=== PATIENT | female | born 1960 | race Caucasian/White ===

== ENCOUNTER 2018-09-01 06:31 | Day surgery (SDC) | payer BC ==
[2018-09-01] MEDS ORDERED: Bupivacaine 0.5% 50 ML MDV ONE (06:36)
[2018-09-01] MEDS ORDERED: Lidocaine 1% with EPINEPHrine 1:100,000 50 ML MDV ONE (06:36)
[2018-09-01] MEDS ORDERED: Sodium Chloride 0.9% 1,000 ML IV SCH (07:00)
[2018-09-01] MEDS ORDERED: Propofol 200 MG/20 ML SDV ONE ×3 (07:19→08:14)
[2018-09-01] MEDS ORDERED: fentaNYL 100 MCG/2 ML SDV ONE (07:19)
[2018-09-01] MEDS ORDERED: Midazolam 1 MG/ML 2 ML SDV ONE ×2 (07:19→07:57)
[2018-09-01] MEDS ORDERED: ceFAZolin 2 GM in Premix Bag 1 BAG IV ONE (07:30)
[2018-09-01] MEDS ORDERED: Bacitracin Oint 1 GM U/D Packet ONE (08:26)
--- NOTE | 2018-09-09 08:57 | OR ---
DATE OF PROCEDURE: 09/01/2018 PROCEDURES: 1. Excision of right breast lesion. 2. 6 mm punch, base of tongue. COMPLICATION: None. [employer]PERATIONS MANAGER: None. PREOPERATIVE DIAGNOSES: 1. Infected breast tissue, recurrent. 2. Concerning lesion at base of tongue in a smoker. POSTOPERATIVE DIAGNOSES: 1. Infected breast tissue, recurrent. 2. Concerning lesion at base of tongue in a smoker. RISKS: Risks, benefits, alternatives, and limitations were explained to the patient including, but not limited to infection, bleeding, false-positives and false-negatives with respect to biopsies, and requirement for operation. The patient understands these risks. She was also explained the fact that we are removing this breast lesion due to her recurrent infections (approximately 5 to 10) over the years, however, not currently infected at this time. PROCEDURE IN DETAIL: The patient was placed in supine position. The area of previous infections was marked by the patient preoperatively. A curvilinear incision would be made after anesthetizing with lidocaine. This was carried down to approximately 3 cm of tissue and approximately a 3 cm in circumference area was removed. All bleeding was controlled with electrocautery. The wound was left open for one minute and inspected for evidence of additional bleeding and none was noted. This was irrigated. The wound was then closed with 3-0 Vicryl and 4-0 Vicryl. Dressings were applied. The lesion at the base of the tongue, slightly to the left of midline, was readily identified. This was anesthetized with lidocaine. A punch biopsy was then performed in standard fashion using 11 blade to take the base. A fast absorbing chromic stitch was then used to close the defect. The patient tolerated the procedure well. Murray Olmedo MD /[id number]
== END 2018-09-01 10:35 | disposition home or self-care (01) ==
LOC: JP.SDS 06:31
PROVIDERS: ATTEND Surgery
DX: C01 Malignant neoplasm of base of tongue (principal); N60.31 Fibrosclerosis of right breast; N61.0 Mastitis without abscess; I10 Essential (primary) hypertension; F17.200 Nicotine dependence, unspecified, uncomplicated; Z88.0 Allergy status to penicillin
CPT/HCPCS: 11104; 19301; 88305; 88342; J0690; J2250; J2704; J3010; J3490; J7030

== ENCOUNTER 2024-06-04 12:10 | Inpatient (IN) | payer BC ==
[2024-06-04] MEDS ORDERED: Sodium Chloride 0.9% 10 ML Syringe FLUSH PRN ×2 (12:58→17:04)
[2024-06-04] MEDS ORDERED: Naloxone 0.4 MG/ML SDV IVPUSH PRN ×3 (12:58→15:29)
[2024-06-04 13:03] LABS: BASOPHILS ABSOLUTE AUTO 0.02 K/uL (0.00-0.10); BASOPHILS PERCENT AUTO 0.5 % (0.1-1.3); EOSINOPHILS ABSOLUTE AUTO 0.01 K/uL (0.00-0.40); EOSINOPHILS PERCENT AUTO 0.3 % (0.0-5.4); HEMATOCRIT 25.2 % (34.3-46.0); HEMOGLOBIN 8.8 g/dL (11.2-15.5); IMMATURE GRAN ABSOLUTE AUTO 0.04 K/uL (0.00-0.23); LYMPHOCYTES ABSOLUTE AUTO 0.47 K/uL (0.8-3.3); LYMPHOCYTES PERCENT AUTO 12.3 % (11.4-47.7); MEAN CORPUSCULAR HEMOGLOBIN 38.6 pg (31.6-35.5); MEAN CORPUSCULAR HGB CONC 34.9 g/dL (31.6-35.5); MEAN CORPUSCULAR VOLUME 110.5 fL (81.4-99.0); MONOCYTES ABSOLUTE AUTO 0.19 K/uL (0.20-0.90); NEUTROPHILS PERCENT AUTO 80.9 % (40.0-78.1); PLATELET COUNT,PLT 163 K/uL (130-375); RED BLOOD CELL COUNT 2.28 M/uL (3.77-5.24); WHITE BLOOD CELL COUNT,WBC 3.8 K/uL (3.2-11.0)
[2024-06-04] MEDS: Ondansetron 4 MG/2 ML SDV IVPUSH ONE (13:04)
[2024-06-04] MEDS: HYDROmorphone 0.5 MG/0.5 ML Syringe IVPUSH ONE ×3 (13:07→15:33)
[2024-06-04 13:14] LABS: A/G RATIO 0.7 (1.2-2.2); ALANINE AMINOTRANSFERASE,ALT 9 U/L (12-78); ALBUMIN 2.5 g/dL (3.4-5.0); ALKALINE PHOSPHATASE 76 U/L (46-116); ASPARTATE AMNIOTRANSFERASE,AST 15 U/L (15-37); BILIRUBIN TOTAL 1.7 mg/dL (0.2-1.0); BLOOD UREA NITROGEN,BUN 11 mg/dL (7-18); C-REACTIVE PROTEIN 8.28 mg/dL (<0.50); CALCIUM 8.8 mg/dL (8.5-10.1); CARBON DIOXIDE,CO2 27 mmol/L (21-32); CHLORIDE,CL 101 mmol/L (100-108); CREATININE 0.5 mg/dL (0.6-1.0); ESTIMATED GFR 105 mL/min (>60); GLUCOSE RANDOM 145 mg/dL (74-106); POTASSIUM,K 3.7 mmol/L (3.6-5.2); PROTEIN TOTAL,TP 6.2 g/dL (6.4-8.2); SODIUM,NA 138 mmol/L (140-148)
[2024-06-04 13:16] LABS: ANION GAP 13.7 mmol/L (5.0-14.0)
[2024-06-04 13:19] LABS: LACTIC ACID 0.8 mmol/L (0.4-2.0)
[2024-06-04] MEDS: Iopamidol 612 MG/ML 100 ML Bottle IV SCH (13:32)
[2024-06-04] MEDS: Sodium Chloride 0.9% 60 ML IV SCH (13:32)
[2024-06-04] MEDS: Sodium Chloride 0.9% 10 ML Syringe FLUSH ONE (13:32)
[2024-06-04] MEDS: Sodium Chloride 0.9% 1,000 ML IV SCH ×2 (14:07→22:28)
[2024-06-04] MEDS: metroNIDAZOLE/Normal Saline 500 MG in Premix Bag 1 BAG IV SCH (15:46)
[2024-06-04] MEDS: Ciprofloxacin in D5W 400 MG in Premix Bag 1 BAG IV SCH (15:46)
[2024-06-04] MEDS ORDERED: Polyethylene Glycol 3350 Powder 17 GM Packet PO PRN (17:04)
[2024-06-04] MEDS: HYDROmorphone 0.5 MG/0.5 ML Syringe IVPUSH PRN (17:31)
[2024-06-04] MEDS: Promethazine 12.5 MG in Sodium Chloride 0.9% 50 ML IV PRN (17:43)
[2024-06-04] MEDS: Lidocaine 4% Top Soln 50 ML Bottle MUCMEM ONE (17:59)
[2024-06-04] MEDS: Enoxaparin 40 MG/0.4 ML Syringe SUBCUT SCH (21:11)
[2024-06-04] MEDS: Formoterol/Mometasone 200-5 MCG 8.8 GM Inhaler INH SCH (21:12)
[2024-06-05 06:02] LABS: HEMATOCRIT 24.9 % (34.3-46.0); HEMOGLOBIN 8.6 g/dL (11.2-15.5); MEAN CORPUSCULAR HEMOGLOBIN 38.9 pg (31.6-35.5); MEAN CORPUSCULAR HGB CONC 34.5 g/dL (31.6-35.5); MEAN CORPUSCULAR VOLUME 112.7 fL (81.4-99.0); RED BLOOD CELL COUNT 2.21 M/uL (3.77-5.24); WHITE BLOOD CELL COUNT,WBC 2.3 K/uL (3.2-11.0)
[2024-06-05 06:16] LABS: CALCIUM 8.7 mg/dL (8.5-10.1); CREATININE 0.5 mg/dL (0.6-1.0); EST CRCL DRUG DOSING (CG) 100.17 mL/min; MAGNESIUM 1.1 mg/dL (1.8-2.4); POTASSIUM,K 3.4 mmol/L (3.6-5.2)
[2024-06-05 06:17] LABS: ANION GAP 11.4 mmol/L (5.0-14.0)
[2024-06-05] MEDS: Tiotropium Bromide 4 GM Inhalation Spray (2.5mcg/1 dose; 10 doses) INH SCH (07:45)
[2024-06-05] MEDS: metroNIDAZOLE/Normal Saline 500 MG in Premix Bag 1 BAG IV SCH (07:50)
[2024-06-05] MEDS: Formoterol/Mometasone 200-5 MCG 8.8 GM Inhaler INH SCH (07:59)
[2024-06-05] MEDS ORDERED: Non-Formulary Medication 1 Each (Fluticasone/Umeclidin/Vilanter [Trelegy Ellipta 200-62.5- IH SCH (09:00)
[2024-06-05] MEDS: HYDROmorphone 1 MG/ML Syringe IVPUSH PRN (12:08)
[2024-06-05] MEDS: Ketorolac 30 MG/ML SDV IVPUSH PRN (13:00)
[2024-06-05] MEDS: Magnesium Sulfate/Water Premix 2 GM in Premix Bag 1 BAG IV SCH (14:11)
[2024-06-05] MEDS: Hyoscyamine 0.125 MG Tab.SL SL PRN (16:17)
[2024-06-05] MEDS: methylPREDNISolone Sodium Succinate 125 MG/2 ML SDV IVPUSH ONE (23:48)
[2024-06-05] MEDS: diphenhydrAMINE 50 MG/ML SDV IVPUSH PRN (23:48)
[2024-06-06 06:00] LABS: HEMATOCRIT 23.3 % (34.3-46.0); HEMOGLOBIN 8.1 g/dL (11.2-15.5); MEAN CORPUSCULAR HEMOGLOBIN 39.1 pg (31.6-35.5); MEAN CORPUSCULAR HGB CONC 34.8 g/dL (31.6-35.5); PLATELET COUNT,PLT 144 K/uL (130-375); RED BLOOD CELL COUNT 2.07 M/uL (3.77-5.24); WHITE BLOOD CELL COUNT,WBC 1.9 K/uL (3.2-11.0)
[2024-06-06] MEDS: methylPREDNISolone Sodium Succinate 125 MG/2 ML SDV IVPUSH ONE (06:19)
[2024-06-06 06:20] LABS: CREATININE 0.6 mg/dL (0.6-1.0); EST CRCL DRUG DOSING (CG) 82.87 mL/min; POTASSIUM,K 3.7 mmol/L (3.6-5.2)
[2024-06-06 06:24] LABS: ANION GAP 8.7 mmol/L (5.0-14.0)
[2024-06-06 06:39] LABS: MEAN CORPUSCULAR VOLUME 112.6 fL (81.4-99.0)
[2024-06-06 06:41] LABS: BAND ABSOLUTE MAN 0.68 K/uL; BAND PERCENT MAN 36 % (5-11); LYMPHOCYTES ABSOLUTE MAN 0.17 K/uL (0.8-3.3); LYMPHOCYTES PERCENT MAN 9 % (24-44); METAMYELOCYTE ABSOLUTE MAN 0.02 K/uL; METAMYELOCYTE PERCENT MAN 1 %; MONOCYTES PERCENT MAN 5 % (2-6); NEUTROPHILS ABSOLUTE MAN 0.93 K/uL (1.0-7.6); SEG NEUTROPHILS PERCENT MAN 49 % (36-66)
[2024-06-06] MEDS: cefTRIAXone 2 GM in Sodium Chloride 0.9% 50 ML IV SCH (10:47)
[2024-06-06] MEDS: Acetaminophen 325 MG Tab PO PRN (15:39)
[2024-06-06] MEDS: LORazepam 2 MG/ML SDV IVPUSH PRN (19:51)
[2024-06-06] MEDS ORDERED: Lidocaine 2% Jelly 10 ML Urojet MUCMEM ONE (20:39)
[2024-06-06] MEDS: Lidocaine 2% Viscous Solution 15 ML UD PO ONE (20:50)
[2024-06-06] MEDS: Metoclopramide 10 MG/2 ML SDV IVPUSH SCH (22:33)
[2024-06-06] MEDS ORDERED: Saliva Substitute Oral Spray 120 ML Bottle MUCMEM PRN (23:42)
[2024-06-06] MEDS: Sodium Chloride 0.9% 1,000 ML IV SCH (23:52)
[2024-06-07] MEDS: Phenol/Sodium Phenolate Spray 180 ML Bottle MUCMEM PRN (06:01)
[2024-06-07] MEDS: Benzocaine/Cetylpyridinium/Menthol Lozenge MUCMEM PRN (10:10)
[2024-06-07] MEDS: Sodium Chloride 0.9% 1,000 ML IV SCH (19:09)
[2024-06-08 05:52] LABS: BASOPHILS PERCENT AUTO 0.3 % (0.1-1.3); EOSINOPHILS PERCENT AUTO 0.2 % (0.0-5.4); HEMATOCRIT 27.3 % (34.3-46.0); HEMOGLOBIN 9.6 g/dL (11.2-15.5); IMMATURE GRAN ABSOLUTE AUTO 0.03 K/uL (0.00-0.23); IMMATURE GRAN PERCENT AUTO 0.5 % (0.0-0.7); LYMPHOCYTES ABSOLUTE AUTO 0.78 K/uL (0.8-3.3); LYMPHOCYTES PERCENT AUTO 13.3 % (11.4-47.7); MEAN CORPUSCULAR HEMOGLOBIN 39.5 pg (31.6-35.5); MEAN CORPUSCULAR HGB CONC 35.2 g/dL (31.6-35.5); MEAN CORPUSCULAR VOLUME 112.3 fL (81.4-99.0); MONOCYTES ABSOLUTE AUTO 0.99 K/uL (0.20-0.90); MONOCYTES PERCENT AUTO 16.9 % (3.3-12.6); NEUTROPHILS ABSOLUTE AUTO 4.04 K/uL (1.0-7.6); NEUTROPHILS PERCENT AUTO 68.8 % (40.0-78.1); PLATELET COUNT,PLT 245 K/uL (130-375); RED BLOOD CELL COUNT 2.43 M/uL (3.77-5.24); WHITE BLOOD CELL COUNT,WBC 5.9 K/uL (3.2-11.0)
[2024-06-08 05:55] LABS: BASOPHILS ABSOLUTE AUTO 0.02 K/uL (0.00-0.10); EOSINOPHILS ABSOLUTE AUTO 0.01 K/uL (0.00-0.40)
[2024-06-08 06:09] LABS: CALCIUM 9.8 mg/dL (8.5-10.1); CREATININE 0.7 mg/dL (0.6-1.0); EST CRCL DRUG DOSING (CG) 71.03 mL/min
[2024-06-08 06:18] LABS: ANION GAP 9.3 mmol/L (5.0-14.0); POTASSIUM,K 2.3 mmol/L (3.6-5.2)
[2024-06-08] MEDS: Potassium Chloride 10 MEQ in Premix Bag 1 BAG IV SCH ×2 (06:34→21:58)
[2024-06-08] MEDS: Iopamidol 612 MG/ML 100 ML Bottle IV SCH (10:30)
[2024-06-08] MEDS: Sodium Chloride 0.9% 80 ML IV SCH (10:30)
[2024-06-08] MEDS: Sodium Chloride 0.9% 10 ML Syringe FLUSH ONE (10:30)
[2024-06-08] MEDS: Pantoprazole 40 MG Vial IVPUSH SCH (21:03)
[2024-06-09 05:03] LABS: HEMOGLOBIN 7.8 g/dL (11.2-15.5); MEAN CORPUSCULAR HEMOGLOBIN 38.6 pg (31.6-35.5); MEAN CORPUSCULAR HGB CONC 33.9 g/dL (31.6-35.5); MEAN CORPUSCULAR VOLUME 113.9 fL (81.4-99.0); RED BLOOD CELL COUNT 2.02 M/uL (3.77-5.24); WHITE BLOOD CELL COUNT,WBC 5.2 K/uL (3.2-11.0)
[2024-06-09 05:15] LABS: CALCIUM 8.5 mg/dL (8.5-10.1); CREATININE 0.5 mg/dL (0.6-1.0); EST CRCL DRUG DOSING (CG) 99.45 mL/min
[2024-06-09 05:18] LABS: ANION GAP 6.8 mmol/L (5.0-14.0); POTASSIUM,K 2.8 mmol/L (3.6-5.2)
[2024-06-09] MEDS: Potassium Chloride 10 MEQ in Premix Bag 1 BAG IV SCH (06:28)
[2024-06-09] MEDS ORDERED: Diatrizoate Meglumine/Diatrizoate Sodium 37% 30 ML Bottle PO SCH (11:45)
[2024-06-09] MEDS: Diatrizoate Meglumine/Diatrizoate Sodium 37% 120 ML Bottle PO ONE (12:20)
[2024-06-09] MEDS: metroNIDAZOLE/Normal Saline 500 MG in Premix Bag 1 BAG IV SCH (14:23)
[2024-06-09] MEDS ORDERED: Potassium Chloride 10 MEQ in Premix Bag 1 BAG IV SCH (15:30)
[2024-06-10 04:57] LABS: HEMATOCRIT 23.7 % (34.3-46.0); HEMOGLOBIN 8.1 g/dL (11.2-15.5); MEAN CORPUSCULAR HEMOGLOBIN 39.1 pg (31.6-35.5); MEAN CORPUSCULAR HGB CONC 34.2 g/dL (31.6-35.5); MEAN CORPUSCULAR VOLUME 114.5 fL (81.4-99.0); RED BLOOD CELL COUNT 2.07 M/uL (3.77-5.24); WHITE BLOOD CELL COUNT,WBC 5.6 K/uL (3.2-11.0)
[2024-06-10 05:21] LABS: C-REACTIVE PROTEIN 8.21 mg/dL (<0.50); CALCIUM 8.2 mg/dL (8.5-10.1); CREATININE 0.5 mg/dL (0.6-1.0); EST CRCL DRUG DOSING (CG) 99.45 mL/min
[2024-06-10 05:23] LABS: ANION GAP 9.9 mmol/L (5.0-14.0); POTASSIUM,K 2.9 mmol/L (3.6-5.2)
[2024-06-10] MEDS: Potassium Chloride 20 MEQ in Premix Bag 2 BAG IV ONE (05:56)
[2024-06-10] MEDS ORDERED: Potassium Chloride 20 MEQ in Premix Bag 1 BAG IV ONE (08:00)
[2024-06-10] MEDS: LORazepam 2 MG/ML SDV IVPUSH PRN (10:12)
[2024-06-10] MEDS: Sodium Chloride 0.9% 60 ML IV ONE (14:22)
[2024-06-10] MEDS: Sodium Chloride 0.9% 10 ML Syringe FLUSH ONE (14:23)
[2024-06-10] MEDS: Iopamidol 612 MG/ML 100 ML Bottle IV ONE (14:23)
[2024-06-10] MEDS: Potassium Chloride 20 MEQ in Premix Bag 1 BAG IV SCH (17:43)
[2024-06-10] MEDS: Potassium Chloride 10 MEQ in Premix Bag 1 BAG IV SCH (17:49)
[2024-06-10] MEDS: Zolpidem 5 MG Tab PO PRN (21:39)
[2024-06-11] MEDS: Sodium Chloride 0.9% 1,000 ML IV SCH (06:12)
[2024-06-11 07:31] LABS: HEMATOCRIT 25.5 % (34.3-46.0); HEMOGLOBIN 8.6 g/dL (11.2-15.5); MEAN CORPUSCULAR HEMOGLOBIN 38.4 pg (31.6-35.5); MEAN CORPUSCULAR HGB CONC 33.7 g/dL (31.6-35.5); MEAN CORPUSCULAR VOLUME 113.8 fL (81.4-99.0); RED BLOOD CELL COUNT 2.24 M/uL (3.77-5.24); WHITE BLOOD CELL COUNT,WBC 7.1 K/uL (3.2-11.0)
[2024-06-11 07:47] LABS: CALCIUM 8.7 mg/dL (8.5-10.1); CREATININE 0.5 mg/dL (0.6-1.0); EST CRCL DRUG DOSING (CG) 99.45 mL/min; POTASSIUM,K 3.4 mmol/L (3.6-5.2)
[2024-06-11 07:59] LABS: ANION GAP 10.4 mmol/L (5.0-14.0)
[2024-06-11] MEDS ORDERED: Potassium Chloride 10 MEQ in Premix Bag 1 BAG IV SCH (08:30)
[2024-06-11] MEDS ORDERED: Rocuronium 50 MG/5 ML Vial ONE (10:59)
[2024-06-11] MEDS ORDERED: Dexamethasone 4 MG/ML SDV ONE (10:59)
[2024-06-11] MEDS ORDERED: Ondansetron 4 MG/2 ML SDV ONE (10:59)
[2024-06-11] MEDS ORDERED: Neostigmine Methylsulfate 10 MG/10 ML MDV ONE (10:59)
[2024-06-11] MEDS ORDERED: Glycopyrrolate 0.2 MG/ML 5 ML MDV ONE (10:59)
[2024-06-11] MEDS ORDERED: fentaNYL 250 MCG/5 ML SDV ONE (10:59)
[2024-06-11] MEDS ORDERED: Propofol 200 MG/20 ML SDV ONE (10:59)
[2024-06-11] MEDS: Bupivacaine 0.5%/EPINEPHrine 1:200,000 50 ML MDV ONE (11:46)
[2024-06-11] MEDS ORDERED: fentaNYL 100 MCG/2 ML SDV ONE (12:24)
[2024-06-11] MEDS: oxyCODONE 5 MG Tab PO PRN (14:19)
[2024-06-12 06:34] LABS: HEMATOCRIT 23.7 % (34.3-46.0); MEAN CORPUSCULAR HEMOGLOBIN 38.6 pg (31.6-35.5); MEAN CORPUSCULAR HGB CONC 33.8 g/dL (31.6-35.5); MEAN CORPUSCULAR VOLUME 114.5 fL (81.4-99.0); PLATELET COUNT,PLT 249 K/uL (130-375); RED BLOOD CELL COUNT 2.07 M/uL (3.77-5.24); WHITE BLOOD CELL COUNT,WBC 8.4 K/uL (3.2-11.0)
[2024-06-12 06:48] LABS: ANION GAP 6.7 mmol/L (5.0-14.0); CALCIUM 7.6 mg/dL (8.5-10.1); CREATININE 0.5 mg/dL (0.6-1.0); EST CRCL DRUG DOSING (CG) 99.45 mL/min; POTASSIUM,K 3.8 mmol/L (3.6-5.2)
[2024-06-12 07:02] LABS: LYMPHOCYTES PERCENT MAN 19 % (24-44); MONOCYTES ABSOLUTE MAN 0.84 K/uL (0.20-0.90); MONOCYTES PERCENT MAN 10 % (2-6); NEUTROPHILS ABSOLUTE MAN 5.96 K/uL (1.0-7.6); SEG NEUTROPHILS PERCENT MAN 71 % (36-66)
[2024-06-12 07:03] LABS: ATYPICAL LYMPHOCYTES FEW; TEARDROP CELLS FEW
[2024-06-13 05:56] LABS: HEMATOCRIT 23.4 % (34.3-46.0); HEMOGLOBIN 7.8 g/dL (11.2-15.5); MEAN CORPUSCULAR HEMOGLOBIN 38.4 pg (31.6-35.5); MEAN CORPUSCULAR HGB CONC 33.3 g/dL (31.6-35.5); MEAN CORPUSCULAR VOLUME 115.3 fL (81.4-99.0); RED BLOOD CELL COUNT 2.03 M/uL (3.77-5.24); WHITE BLOOD CELL COUNT,WBC 8.1 K/uL (3.2-11.0)
[2024-06-13 06:15] LABS: CALCIUM 7.7 mg/dL (8.5-10.1); CREATININE 0.5 mg/dL (0.6-1.0); EST CRCL DRUG DOSING (CG) 100.17 mL/min; POTASSIUM,K 3.3 mmol/L (3.6-5.2)
[2024-06-13 06:16] LABS: ANION GAP 9.3 mmol/L (5.0-14.0)
[2024-06-13] MEDS: Magnesium Hydroxide 400 MG/5 ML Susp 30 ML Cup PO PRN (09:16)
[2024-06-13] MEDS: Metoclopramide 10 MG/2 ML SDV IV SCH (09:16)
[2024-06-13] MEDS: Potassium Chloride 20 MEQ in Premix Bag 1 BAG IV SCH (09:17)
[2024-06-13] MEDS: Bisacodyl 10 MG Supp RECTAL ONE (09:17)
[2024-06-14 05:37] LABS: HEMATOCRIT 23.5 % (34.3-46.0); HEMOGLOBIN 7.9 g/dL (11.2-15.5); MEAN CORPUSCULAR HEMOGLOBIN 37.8 pg (31.6-35.5); MEAN CORPUSCULAR HGB CONC 33.6 g/dL (31.6-35.5); MEAN CORPUSCULAR VOLUME 112.4 fL (81.4-99.0); RED BLOOD CELL COUNT 2.09 M/uL (3.77-5.24); WHITE BLOOD CELL COUNT,WBC 8.2 K/uL (3.2-11.0)
[2024-06-14 05:52] LABS: CALCIUM 7.6 mg/dL (8.5-10.1); CREATININE 0.5 mg/dL (0.6-1.0); EST CRCL DRUG DOSING (CG) 100.17 mL/min; POTASSIUM,K 3.3 mmol/L (3.6-5.2)
[2024-06-14 05:58] LABS: ANION GAP 10.3 mmol/L (5.0-14.0)
[2024-06-14] MEDS ORDERED: Potassium Chloride 10 MEQ in Premix Bag 1 BAG IV SCH ×2 (08:00→17:00)
[2024-06-14] MEDS: Magnesium Sulfate/Water Premix 2 GM in Premix Bag 1 BAG IV SCH ×2 (10:10→14:51)
[2024-06-14] MEDS ORDERED: Peripheral TPN 1 ML IV SCH (12:45)
[2024-06-14] MEDS: Cefepime 2 GM in Sodium Chloride 0.9% 50 ML IV SCH (14:50)
[2024-06-14] MEDS: LORazepam 2 MG/ML SDV IVPUSH PRN (18:10)
[2024-06-14] MEDS: Potassium Chloride 100 ML ONE (19:42)
[2024-06-15 05:31] LABS: ANION GAP 5.7 mmol/L (5.0-14.0); CALCIUM 7.7 mg/dL (8.5-10.1); CREATININE 0.5 mg/dL (0.6-1.0); EST CRCL DRUG DOSING (CG) 100.17 mL/min; MAGNESIUM 1.7 mg/dL (1.8-2.4); POTASSIUM,K 3.7 mmol/L (3.6-5.2)
[2024-06-15] MEDS: Magnesium Sulfate/Water Premix 2 GM in Premix Bag 1 BAG IV ONE (09:09)
[2024-06-15] MEDS: Diatrizoate Meglumine/Diatrizoate Sodium 37% 120 ML Bottle PO SCH (10:57)
[2024-06-15] MEDS: 1: AA 4.25%/D5W/Calcium/Lytes 1,000 ML with MVI, Adult with Vitamin K 10 ML, Zinc/Copper IV SCH (12:22)
[2024-06-16 06:00] LABS: CALCIUM 7.8 mg/dL (8.5-10.1); CREATININE 0.5 mg/dL (0.6-1.0); EST CRCL DRUG DOSING (CG) 100.17 mL/min; MAGNESIUM 1.3 mg/dL (1.8-2.4); POTASSIUM,K 3.6 mmol/L (3.6-5.2)
[2024-06-16 06:01] LABS: ANION GAP 8.6 mmol/L (5.0-14.0)
[2024-06-16] MEDS ORDERED: Potassium Chloride 10 MEQ in Premix Bag 1 BAG IV SCH (08:30)
[2024-06-16] MEDS ORDERED: methylPREDNISolone Sod Succ 125 MG in Dextrose 5% in Water 100 ML IV ONE (10:48)
[2024-06-16] MEDS: Magnesium Sulfate/Water Premix 2 GM in Premix Bag 1 BAG IV SCH (12:07)
[2024-06-16] MEDS: methylPREDNISolone Sodium Succinate 125 MG/2 ML SDV IVPUSH ONE (12:11)
[2024-06-16] MEDS: 1: AA 5%/Calcium/D15W/Lytes 1,000 ML with MVI, Adult with Vitamin K 10 ML, Zinc/Copper/M IV SCH (15:07)
[2024-06-16] MEDS: Fat Emulsion 100 ML IV ONE (15:25)
[2024-06-17 05:50] LABS: CALCIUM 8.4 mg/dL (8.5-10.1); CREATININE 0.6 mg/dL (0.6-1.0); EST CRCL DRUG DOSING (CG) 83.48 mL/min; MAGNESIUM 2.3 mg/dL (1.8-2.4); POTASSIUM,K 4.5 mmol/L (3.6-5.2)
[2024-06-17 05:54] LABS: ANION GAP 8.5 mmol/L (5.0-14.0)
[2024-06-17] MEDS: Fat Emulsion 100 ML IV ONE (16:04)
[2024-06-17] MEDS: LORazepam 1 MG Tab PO PRN (20:03)
[2024-06-18] MEDS: Magnesium Hydroxide 400 MG/5 ML Susp 30 ML Cup PO SCH (11:39)
== END 2024-06-19 15:54 | disposition home or self-care (01) | DRG 244 ==
LOC: JP.ED 12:10 → JP.MS 15:35
PROVIDERS: ADMIT Internal Medicine; ATTEND Internal Medicine
PROC: 0D9670Z Drainage of Stomach with Drainage Device, Via Natural or Artificial Opening (ICD-10-PCS; 2024-06-11)
PROC: 0W9G4ZZ Drainage of Peritoneal Cavity, Percutaneous Endoscopic Approach (ICD-10-PCS; principal; 2024-06-11 10:30)
PROC: 3E0336Z Introduction of Nutritional Substance into Peripheral Vein, Percutaneous Approach (ICD-10-PCS; 2024-06-14)
DX: K57.20 Diverticulitis of large intestine with perforation and abscess without bleeding (principal); K56.609 Unspecified intestinal obstruction, unspecified as to partial versus complete obstruction; J44.9 Chronic obstructive pulmonary disease, unspecified; D84.9 Immunodeficiency, unspecified; K56.7 Ileus, unspecified; K76.0 Fatty (change of) liver, not elsewhere classified; E83.42 Hypomagnesemia; C34.92 Malignant neoplasm of unspecified part of left bronchus or lung; H54.7 Unspecified visual loss; E87.6 Hypokalemia; F17.210 Nicotine dependence, cigarettes, uncomplicated; Z88.0 Allergy status to penicillin; Z99.81 Dependence on supplemental oxygen; Z79.899 Other long term (current) drug therapy; Z90.49 Acquired absence of other specified parts of digestive tract; Z88.1 Allergy status to other antibiotic agents
CPT/HCPCS: 36415; 71045; 71046; 74018; 74018-26; 74019; 74019-26; 74021; 74177; 74177-26; 80048; 80053; 83605; 83735; 84132; 85018; 85025; 85027; 86140; 86850; 86900; 86901; 86920; 86922; 87040; 94640; 96361; 96374; 96375; 96376; 99222; 99232; 99233; 99238; 99284; 99285-25; A9270-GY; J0692; J0696; J0744; J1100; J1171; J1200; J1596; J1650; J1836; J1885; J2060; J2405; J2470; J2550; J2704; J2710; J2765; J2919; J3010; J3475; J3480; J3490; J7030; Q9963; Q9967

== ENCOUNTER 2024-12-25 10:00 | Emergency (ER) | payer MEDICAID ==
[2024-12-25 10:41] LABS: BASOPHILS ABSOLUTE AUTO 0.03 K/uL (0.00-0.10); BASOPHILS PERCENT AUTO 0.8 % (0.1-1.3); EOSINOPHILS ABSOLUTE AUTO 0.13 K/uL (0.00-0.40); EOSINOPHILS PERCENT AUTO 3.5 % (0.0-5.4); HEMATOCRIT 30.5 % (34.3-46.0); IMMATURE GRAN ABSOLUTE AUTO 0.07 K/uL (0.00-0.23); IMMATURE GRAN PERCENT AUTO 1.9 % (0.0-0.7); LYMPHOCYTES ABSOLUTE AUTO 0.18 K/uL (0.8-3.3); LYMPHOCYTES PERCENT AUTO 4.8 % (11.4-47.7); MEAN CORPUSCULAR HEMOGLOBIN 31.5 pg (31.6-35.5); MEAN CORPUSCULAR HGB CONC 32.8 g/dL (31.6-35.5); MEAN CORPUSCULAR VOLUME 96.2 fL (81.4-99.0); MONOCYTES ABSOLUTE AUTO 0.26 K/uL (0.20-0.90); MONOCYTES PERCENT AUTO 6.9 % (3.3-12.6); NEUTROPHILS ABSOLUTE AUTO 3.09 K/uL (1.0-7.6); NEUTROPHILS PERCENT AUTO 82.1 % (40.0-78.1); PLATELET COUNT,PLT 110 K/uL (130-375); RED BLOOD CELL COUNT 3.17 M/uL (3.77-5.24); WHITE BLOOD CELL COUNT,WBC 3.8 K/uL (3.2-11.0)
[2024-12-25 11:01] LABS: A/G RATIO 0.6 (1.2-2.2); ALANINE AMINOTRANSFERASE,ALT 10 U/L (12-78); ALBUMIN 2.1 g/dL (3.4-5.0); ALKALINE PHOSPHATASE 68 U/L (46-116); ASPARTATE AMNIOTRANSFERASE,AST 8 U/L (15-37); BILIRUBIN TOTAL 0.6 mg/dL (0.2-1.0); BLOOD UREA NITROGEN,BUN 7 mg/dL (7-18); CALCIUM 8.3 mg/dL (8.5-10.1); CARBON DIOXIDE,CO2 31 mmol/L (21-32); CHLORIDE,CL 101 mmol/L (100-108); CREATININE 0.3 mg/dL (0.6-1.0); EST CRCL DRUG DOSING (CG) 170.47 mL/min; ESTIMATED GFR 118 mL/min (>60); GLUCOSE RANDOM 106 mg/dL (74-106); PROTEIN TOTAL,TP 5.7 g/dL (6.4-8.2); SODIUM,NA 140 mmol/L (140-148)
[2024-12-25] MEDS: Pantoprazole 40 MG Vial IVPUSH ONE (12:59)
[2024-12-25] MEDS: Dexamethasone 4 MG/ML SDV IVPUSH SCH (13:01)
[2024-12-25] MEDS: levETIRAcetam 500 MG/5 ML SDV IVPUSH ONE (13:04)
== END 2024-12-25 20:00 | disposition other institution (70) ==
LOC: JP.ED 10:00
DX: R29.898 Other symptoms and signs involving the musculoskeletal system (principal); C34.90 Malignant neoplasm of unspecified part of unspecified bronchus or lung; E87.6 Hypokalemia; Z90.49 Acquired absence of other specified parts of digestive tract; Z88.0 Allergy status to penicillin; Z88.1 Allergy status to other antibiotic agents; Z79.899 Other long term (current) drug therapy
CPT/HCPCS: 36415; 70450; 80053; 85025; 96374; 96375; 99285; J1100; J1953; J2470; 99284